=== PATIENT | female | born 1960 | race Caucasian/White ===

== ENCOUNTER 2016-10-22 16:47 | Emergency (ER) | payer BC ==
[2016-10-22] MEDS ORDERED: SODIUM CHLORIDE 0.9% 1,000 ML IV STA (17:05)
[2016-10-22] MEDS ORDERED: ONDANSETRON 4 MG/2 ML VIAL IVP STA (17:05)
[2016-10-22] MEDS ORDERED: KETOROLAC 30 MG/ML 1 ML VIAL IVP STA (17:05)
--- NOTE | 2016-10-22 17:07 | ED ---
Back Pain HPI - General Chief Complaint: Back Pain/Injury Stated Complaint: lower back and abdominal pain Time Seen by Provider: 10/22/16 16:56 Source: patient, RN notes reviewed Limitations: no limitations - History of Present Illness Initial Comments: 56-year-old female presents to emergency room chief complaint of left-sided back pain that radiates to the left lower quadrant into the groin. Patient states she's had it for the past few days. Patient states she took the urine to her doctor he got maybe a UTI and she was started on antibiotics. Patient states that she continues to have pain with some nausea. Patient states there is no vomiting. Patient states the pain is moderate. Patient states movement or touch does not seem to change the pain. Patient denies any history of having anything like this in the past. Patient states that she is not currently having any other symptoms. Patient denies any recent fever, chills, shortness of breath, chest pain, vomiting, numbness or tingling, dysuria or hematuria, constipation or diarrhea, headaches or visual changes, or any other current symptoms. - Related Data Home Medications Medication Instructions Recorded Confirmed Citalopram Hydrobromide [CeleXA] 20 mg PO DAILY 10/22/16 10/22/16 Levofloxacin [Levaquin] 500 mg PO DAILY 10/22/16 10/22/16 Phenazopyridine Hcl 97.5 mg PO TID PRN 10/22/16 10/22/16 Previous Rx's Medication Instructions Recorded Hydrocodone/Acetaminophen [Dysart 1 each PO Q6HR PRN #20 tab 10/22/16 5-325] Ketorolac [Toradol] 10 mg PO Q6HR #20 tab 10/22/16 Ondansetron Odt [Zofran ODT] 4 mg PO Q8HR PRN #20 tab 10/22/16 Tamsulosin [Flomax] 0.4 mg PO DAILY #5 cap 10/22/16 Allergies Allergy/AdvReac Type Severity Reaction Status Date / Time Sulfa (Sulfonamide Allergy Rash/Hives Verified 10/22/16 17:23 Antibiotics) Review of Systems ROS Statement: Those systems with pertinent positive or pertinent negative responses have been documented in the HPI. ROS Other: All systems not noted in ROS Statement are negative. Past Medical History Past Medical History: No Reported History History of Any Multi-Drug Resistant Organisms: None Reported Past Surgical History: Tubal Ligation Additional Past Surgical History / Comment(s): hemorroidectomy Past Psychological History: No Psychological Hx Reported Smoking Status: Former smoker Past Alcohol Use History: Occasional Past Drug Use History: None Reported General Exam - General Exam Comments Initial Comments: General: The patient is awake and alert, in no distress, and does not appear acutely ill. Eye: Pupils are equal, round and reactive to light, extra-ocular movements are intact; there is normal conjunctiva bilaterally. No signs of icterus. Ears, nose, mouth and throat: There are moist mucous membranes. Neck: The neck is supple, there is no tenderness. Cardiovascular: There is a regular rate and rhythm. No murmur, rub or gallop is appreciated. Respiratory: Lungs are clear to auscultation, respirations are non-labored, breath sounds are equal. No wheezes, stridor, rales, or rhonchi. Gastrointestinal: Soft, non-distended, non-tender abdomen without masses or organomegaly noted. There is no rebound or guarding present. No CVA tenderness. Bowel sounds are unremarkable. Back: There is no tenderness to palpation in the midline. There is no obvious deformity. No rashes noted. Musculoskeletal: Normal ROM, no tenderness, There is no pedal edema. There is no calf tenderness or swelling. Sensation intact. Pulses equal bilaterally 2+. Neurological: CN II-XII intact, There are no obvious motor or sensory deficits. Coordination appears grossly intact. Speech is normal. Skin: Skin is warm and dry and no rashes or lesions are noted. Psychiatric: Cooperative, appropriate mood & affect, normal judgment. Limitations: no limitations Course Vital Signs 10/22/16 16:52 Temperature 97.6 F Pulse Rate 67 Respiratory 16 Rate Blood Pressure 128/61 O2 Sat by Pulse 100 Oximetry Medical Decision Making - Medical Decision Making 56-year-old female presents to the emergency department with a chief complaint of abdominal pain. This time patient's lab work is reviewed in CAT scan. At this time further history was quite with the patient didn't feels if she passed something last night. This we discussed patient's symptoms are consistent with a possible ureteral calculi. Patient is currently on antibiotics or possibly. Urine and the tenderness appeared to be clean. At this time we discussed with her and he medication we will start her on Flomax and nausea meds. We did discuss follow-up with urology and she is given this information. We discussed return parameters. Patient stated that she understood all questions were answered. Patient will be discharged home. - Lab Data Result diagrams: 10/22/16 17:10 10/22/16 17:10 Lab Results 10/22/16 10/22/16 10/22/16 Range/Units 17:10 17:10 17:10 WBC 7.1 (3.8-10.6) k/uL RBC 4.62 (3.80-5.40) m/uL Hgb 13.2 (11.4-16.0) gm/dL Hct 41.5 (34.0-46.0) % MCV 89.8 (80.0-100.0) fL MCH 28.6 (25.0-35.0) pg MCHC 31.8 (31.0-37.0) g/dL RDW 11.9 (11.5-15.5) % Plt Count 225 (150-450) k/uL Neutrophils % (Manual) 56.0 % Lymphocytes % (Manual) 35.0 % Monocytes % (Manual) 7.0 % Eosinophils % (Manual) 2.0 % Neutrophils # (Manual) 4.0 (1.3-7.7) k/uL Lymphocytes # (Manual) 2.5 (1.0-4.8) k/uL Monocytes # (Manual) 0.5 (0-1.0) k/uL Eosinophils # (Manual) 0.1 (0-0.7) k/uL Nucleated RBCs 0 (0-0) /100 WBC Manual Slide Review Performed RBC Morphology Normal Sodium 142 (137-145) mmol/L Potassium 3.9 (3.5-5.1) mmol/L Chloride 105 (98-107) mmol/L Carbon Dioxide 26 (22-30) mmol/L Anion Gap 11 mmol/L BUN 13 (7-17) mg/dL Creatinine 1.04 (0.52-1.04) mg/dL Est GFR (MDRD) Af Amer >60 (>60 ml/min/1.73 sqM) Est GFR (MDRD) Non-Af 55 (>60 ml/min/1.73 sqM) Glucose 110 H (74-99) mg/dL Calcium 9.1 (8.4-10.2) mg/dL Total Bilirubin 0.6 (0.2-1.3) mg/dL AST 28 (14-36) U/L ALT 36 (9-52) U/L Alkaline Phosphatase 84 (38-126) U/L Total Protein 7.3 (6.3-8.2) g/dL Albumin 4.4 (3.5-5.0) g/dL Amylase 38 (30-110) U/L Lipase 28 (23-300) U/L Urine Color Yellow Urine Appearance Clear (Clear) Urine pH 6.5 (5.0-8.0) Ur Specific [place] 1.001 (1.001-1.035) Urine Protein Negative (Negative) Urine Glucose (UA) Negative (Negative) Urine Ketones Negative (Negative) Urine Blood Negative (Negative) Urine Nitrate Negative (Negative) Urine Bilirubin Negative (Negative) Urine Urobilinogen <2.0 (<2.0) mg/dL Ur Leukocyte Esterase Negative (Negative) - Radiology Data Radiology results: report reviewed, image reviewed Disposition Clinical Impression: Left flank pain Disposition: HOME SELF-CARE Condition: Stable Instructions: Flank Pain (ED) Additional Instructions: Please use medication as discussed. Please follow up with family doctor if symptoms have not improved over the next two days. Please return to the emergency room if your symptoms increase or worsen or for any other concerns. Prescriptions: Hydrocodone/Acetaminophen [Dysart 5-325] 1 each PO Q6HR PRN #20 tab PRN Reason: Pain Ketorolac [Toradol] 10 mg PO Q6HR #20 tab Ondansetron Odt [Zofran ODT] 4 mg PO Q8HR PRN #20 tab PRN Reason: Nausea Tamsulosin [Flomax] 0.4 mg PO DAILY #5 cap Referrals: Rodger Griffiths DO [Primary Care Provider] - 1-2 days Gurinder Sethi MD [STAFF PHYSICIAN] - 1-2 days Time of Disposition: 18:09
[2016-10-22 17:26] LABS: Appearance,Urine Clear (Clear); Aty Lym Flag Marked; Bilirubin,Urine Negative (Negative); CH 30.3; CHCM 33.8; Glucose,Urine (UA) Negative (Negative); HCT 41.5 % (34.0-46.0); HDW 2.52; HGB 13.2 gm/dL (11.4-16.0); Ketones,Urine Negative (Negative); Leukocyte Esterase,Urine Negative (Negative); MCH 28.6 pg (25.0-35.0); MCHC 31.8 g/dL (31.0-37.0); MCV 89.8 fL (80.0-100.0); MPO Flag Slight; Mean Platelet Volume 7.2; Nitrite,Urine Negative (Negative); PH, Urine 6.5 (5.0-8.0); Protein,Urine Negative (Negative); RBC 4.62 m/uL (3.80-5.40); RDW 11.9 % (11.5-15.5); Specific Gravity,Urine 1.001 (1.001-1.035); UA Billing (MACRO vs. MICRO) CHEM; Urobilinogen,Urine <2.0 mg/dL (<2.0); WBC 7.1 k/uL (3.8-10.6); WBC (Perox) 7.45
[2016-10-22 17:34] LABS: ALT 36 U/L (9-52); AST 28 U/L (14-36); Alkaline Phosphatase 84 U/L (38-126); Amylase 38 U/L (30-110); Anion Gap 11 mmol/L; Blood Urea Nitrogen 13 mg/dL (7-17); Calcium 9.1 mg/dL (8.4-10.2); Carbon Dioxide 26 mmol/L (22-30); Chloride 105 mmol/L (98-107); Glucose 110 mg/dL (74-99); Non-African American GFR(MDRD) 55 (>60 ml/min/1.73 sqM); Potassium 3.9 mmol/L (3.5-5.1); Sodium 142 mmol/L (137-145); Total Bilirubin 0.6 mg/dL (0.2-1.3); Total Protein 7.3 g/dL (6.3-8.2)
--- NOTE | 2016-10-22 17:50 | CT ---
EXAMINATION TYPE: CT abdomen pelvis wo con DATE OF EXAM: 10/22/2016 5:37 PM COMPARISON: 04/08/2010 HISTORY: PT states of lower abdominal pain that radiates into back. CT DLP: 365.8 mGycm Automated exposure control for dose reduction was used. TECHNIQUE: Helical acquisition of images was performed from the lung bases through the pelvis. FINDINGS: Lung bases are clear. There is no pleural effusion. Heart size is normal. Liver spleen pancreas gallbladder appear normal. Bile ducts are not dilated. There is no adrenal mass . Kidneys have normal size and contour. There is no hydronephrosis. Ureters are not dilated. There is no retroperitoneal adenopathy. Appendix appears normal. I see no intestinal wall thickening. There a re no dilated loops. Bladder distends smoothly. There is no sign of a pelvic mass. The bony structure s are intact. Uterus is retroverted. There is no evidence of a bony destructive process. IMPRESSION: NEGATIVE CT SCAN OF THE ABDOMEN AND PELVIS. NO ADVERSE CHANGE COMPARED TO OLD EXAM.
[2016-10-22 17:57] LABS: Add Differential Manual Differential
[2016-10-22 17:59] LABS: Manual Review Performed; Nucleated Red Blood Cells 0 /100 WBC (0-0); RBC Morphology Normal; Total Cells Counted 100
[2016-10-22 18:13] VITALS: BP 111/59
[2016-10-22 18:44] VITALS: PULSE 66; RESP 16; TEMP 98
== END 2016-10-22 18:40 | disposition home or self-care (01) ==
LOC: EC 16:47
DX: R10.9 Unspecified abdominal pain (principal); Z79.899 Other long term (current) drug therapy; Z88.2 Allergy status to sulfonamides; Z87.891 Personal history of nicotine dependence
CPT/HCPCS: 36415; 80053; 82150; 83690; 85025; 81003; 87086; 74176; 99284; 96374; 96375; 96361; J1885

== ENCOUNTER → 2017-02-20 | Outpatient (CLI) | payer BC ==
[2017-02-20 13:11] LABS: Aty Lym Flag Marked; CH 30.1; CHCM 32.7; HCT 39.8 % (34.0-46.0); HDW 2.32; MCH 30.1 pg (25.0-35.0); MCHC 32.6 g/dL (31.0-37.0); MCV 92.4 fL (80.0-100.0); MPO Flag Slight; WBC (Perox) 6.22
[2017-02-20 13:30] LABS: Add Differential Manual Differential
[2017-02-20 13:34] LABS: Anion Gap 8 mmol/L; Blood Urea Nitrogen 15 mg/dL (7-17); Calcium 9.4 mg/dL (8.4-10.2); Carbon Dioxide 28 mmol/L (22-30); Chloride 103 mmol/L (98-107); Glucose 153 mg/dL (74-99); Manual Review Performed; Non-African American GFR(MDRD) >60 (>60 ml/min/1.73 sqM); Nucleated Red Blood Cells 0 /100 WBC (0-0); Potassium 4.3 mmol/L (3.5-5.1); RBC Morphology Normal; Sodium 139 mmol/L (137-145); Total Cells Counted 100
== END | disposition home or self-care (01) ==
LOC: LABPAT 12:27
PROVIDERS: ATTEND Podiatrist Foot & Ankle Surgery
DX: Z01.812 Encounter for preprocedural laboratory examination (principal)
CPT/HCPCS: 80048; 85025

== ENCOUNTER → 2019-01-09 | Outpatient (CLI) | payer BC ==
--- NOTE | 2019-01-09 08:38 | US ---
EXAMINATION TYPE: US thyroid st tissue head/neck DATE OF EXAM: 01/09/2019 COMPARISON: NONE CLINICAL HISTORY: E04.9 THYROID GOITER. GLAND SIZE: Right Lobe: cm Overall Parenchyma: Left Lobe: cm Overall Parenchyma: Isthmus Thickness: cm NODULES RIGHT: # of nodules measured on right: 1. X x cm nodule at the pole with margins; . This nodule is and shows . Prior size: x x cm 2. X x cm nodule at the pole with margins; . This nodule is and shows . Prior size: x x cm 3. X x cm nodule at the pole with margins; . This nodule is and shows . Prior size: x x cm 4. X x cm nodule at the pole with margins; . This nodule is and shows . Prior size: x x cm LEFT: # of nodules measured on left: 1. X x cm nodule at the pole with margins; . This nodule is and shows . Prior size: x x cm 2. X x cm nodule at the pole with margins; . This nodule is and shows . Prior size: x x cm 3. X x cm nodule at the pole with margins; . This nodule is and shows . Prior size: x x cm 4. X x cm nodule at the pole with margins; . This nodule is and shows . Prior size: x x cm ISTHMUS: # of nodules measured in the isthmus: 1. X x cm nodule at the pole with margins; . This nodule is and shows . Prior size: x x cm Bilateral neck scanned, no evidence of lymphadenopathy. IMPRESSION: EXAMINATION TYPE: US thyroid st tissue head/neck DATE OF EXAM: 01/09/2019 COMPARISON: NONE CLINICAL HISTORY: E04.9 THYROID GOITER. MEASUREMENTS: GLAND SIZE: Right Lobe: 3.7 x 1.3 x 1.2 Left Lobe: 3.2 x 0.8 x 0.6 Isthmus Thickness: 0.2 NODULES RIGHT: # of nodules measured on right: 0 LEFT: # of nodules measured on left: 0 ISTHMUS: # of nodules measured within isthmus: 0 Bilateral neck scanned, no evidence of lymphadenopathy. IMPRESSION: Homogeneous nonenlarged thyroid gland with no discrete nodule.
--- NOTE | 2019-01-09 11:01 | XR ---
EXAMINATION TYPE: XR chest 2V DATE OF EXAM: 01/09/2019 COMPARISON: Prior chest x-ray 06/30/2016 HISTORY: Atypical chest pain, thyroid goiter TECHNIQUE: Frontal and lateral views of the chest are obtained. FINDINGS: There is no focal air space opacity, pleural effusion, or pneumothorax seen. The cardiac silhouette size is within normal limits. The osseous structures are intact. IMPRESSION: No acute cardiopulmonary process.
--- NOTE | 2019-01-09 11:14 | ECHOF ---
Referral Reason:R07.89 Atypical Chest Pain MEASUREMENTS -------- HEIGHT: 162.6 cm WEIGHT: 82.6 kg BP: 125/75 RVIDd: 2.7 cm (< 3.3) IVSd: 1.0 cm (0.6 - 1.1) LVIDd: 3.6 cm (3.9 - 5.3) LVPWd: 0.9 cm (0.6 - 1.1) IVSs: 1.3 cm LVIDs: 3.2 cm LVPWs: 1.3 cm LA Diam: 2.6 cm (2.7 - 3.8) LAESV Index (A-L): 20.53 ml/m Ao Diam: 2.4 cm (2.0 - 3.7) AV Cusp: 1.8 cm (1.5 - 2.6) EPSS: 0.3 cm MV E Tyler: 0.92 m/s MV DecT: 258 ms MV A Tyler: 0.65 m/s MV E/A Ratio: 1.40 RAP: 5.00 mmHg RVSP: 29.76 mmHg MV EF SLOPE: 133.71 mm/s (70 - 150) MV EXCURSION: 1.65 cm (> 18.000) FINDINGS -------- Sinus rhythm. This was a technically good study. The left ventricular size is normal. Left ventricular wall thickness is normal. Overall left vent ricular systolic function is normal with, an EF between 60 - 65 %. The right ventricle is normal in size. Normal LA size by volume 22+/-6 ml/m2. The right atrium is normal in size. Aortic valve is trileaflet and is mildly thickened. The mitral valve leaflets are mildly thickened. Mild mitral regurgitation is present. Mild tricuspid regurgitation present. Right ventricular systolic pressure is normal at < 35 mmHg. Trace/mild (physiologic) pulmonic regurgitation. The aortic root size is normal. Normal inferior vena cava with normal inspiratory collapse consistent with estimated right atrial pre ssure of 5 mmHg. There is no pericardial effusion. CONCLUSIONS -------- 1. Sinus rhythm. 2. This was a technically good study. 3. The left ventricular size is normal. 4. Left ventricular wall thickness is normal. 5. Overall left ventricular systolic function is normal with, an EF between 60 - 65 %. 6. The right ventricle is normal in size. 7. Normal LA size by volume 22+/-6 ml/m2. 8. The right atrium is normal in size. 9. Aortic valve is trileaflet and is mildly thickened. 10. The mitral valve leaflets are mildly thickened. 11. Mild mitral regurgitation is present. 12. Mild tricuspid regurgitation present. 13. Right ventricular systolic pressure is normal at < 35 mmHg. 14. Trace/mild (physiologic) pulmonic regurgitation. 15. The aortic root size is normal. 16. Normal inferior vena cava with normal inspiratory collapse consistent with estimated right atrial pressure of 5 mmHg. 17. There is no pericardial effusion. SHANK ARCHER: JOSHUA Ron
--- NOTE | 2019-01-09 13:02 | EST ---
EXERCISE STRESS AGE: 58 SEX: F HT: 64" WT: 182 PROTOCOL: Stress Test STAGE: 3 DURATION OF EXERCISE: 9:00 HEART RATE REST: 60 BLOOD PRESSURE REST: 125/75 MAXIMUM HEART RATE ACHIEVED: 145 MAXIMUM BLOOD PRESSURE: 171/55 85% MPHR: 137 100% MPHR: 161 METS: 10.5 INDICATIONS: Chest pain. CLINICAL INFORMATION: Baseline EKG revealed normal sinus rhythm without significant ST-T changes. Patient walked on standard Sunny protocol for 9 minutes achieved a maximum heart rate of 145 beats per minute which is more than 85% of predicted maximal. She developed fatigue and shortness of breath but did not have any angina or arrhythmia. The EKG did not reveal any ST-segment changes to indicate ischemia. By EKG this is a negative stress test with fair exercise capacity. MMODL / IJN: [id number] /
== END | disposition home or self-care (01) ==
LOC: RADUSMAIN 07:44
PROVIDERS: ATTEND Family Medicine
DX: R07.89 Other chest pain (principal); E04.9 Nontoxic goiter, unspecified; R06.02 Shortness of breath; R53.83 Other fatigue; Z88.2 Allergy status to sulfonamides
CPT/HCPCS: 71046; 76536; 93017; 93306

== ENCOUNTER 2019-01-16 09:39 | Day surgery (SDC) | payer BC ==
[2019-01-14 14:28] VITALS: BMI 31.6
[~2019-01-16 09:39] MED LIST: LACTATED RINGERS 1,000 ML IV SCH
[2019-01-16 10:04] VITALS: TEMP 97.8
[2019-01-16] MEDS ORDERED: LIDOCAINE 1% 20 ML VIAL (10MG/ML) FOR IV START INTRADERMA ONE (10:13)
[2019-01-16] MEDS ORDERED: PROPOFOL 10 MG/ML 20 ML VIAL IV ONE (11:03)
[2019-01-16] MEDS ORDERED: LIDOCAINE 1% INJ 10MG/ML (20 ML MDV) ONE (11:03)
--- NOTE | 2019-01-16 11:26 | P.PCN ---
Date of Procedure: 01/16/19 Procedure(s) Performed: Brief history: Patient is a pleasant 58-year-old white female, scheduled for an elective upper endoscopy as well as colonoscopy as a part of evaluation of GERD intermittent dysphagia to solids and screening for colorectal neoplasia Procedure performed: Esophagogastroduodenoscopy with biopsy Colonoscopy Preoperative diagnosis: GERD/intermittent dysphagia to solids Screening for colon cancer Anesthesia: MAC Procedure: After informed consent was obtained from the patient was brought into the endoscopy unit and IV sedation was administered by anesthesia under continuous monitoring. Initially upper endoscopy was done. The Olympus GF 160 video endoscope was inserted inserted into the mouth and esophagus intubated without any difficulty and was gradually advanced into the stomach and duodenum and carefully examined. The bulb and second part of the duodenum appeared normal. The scope was then withdrawn into the stomach adequately insufflated with air and upon careful examination the antrum scattered erosions and biopsies were done from this area. The body, cardia and fundus appeared normal. The scope was then withdrawn into the esophagus. The GE junction was located at 40 cm to the incisors. It appeared regular with no erythema erosions or ulcerations. Re st of the esophagus appeared normal. Biopsies were done from the distal esophagus to rule out eosinophilic esophagitis. Patient tolerated the procedure well. At this time the patient continued to remain sedation. Initial digital rectal examination was normal. Olympus CF 160 video colonoscope was then inserted into the rectum and gradually advanced to the cecum without any difficulty. Careful examination was performed as the scope was gradually being withdrawn. The prep was excellent. The cecum, ascending colon, transverse colon, descending colon, sigmoid colon and rectum appeared normal. Retroflexion was performed in the rectum and no lesions were noted. Patient tolerated the procedure well. Impression: 1. Upper endoscopy revealed mild antral gastritis but no evidence of esopha gitis or esophageal stricture 2. Colonoscopy was within normal limits with no evidence of colitis or colorectal neoplasia. Recommendations: Findings of this examination were discussed with the patient as well as a family. She was advised to follow with the biopsy results. She can have a repeat screening colonoscopy in 10 years.
[2019-01-16 11:49] VITALS: BP 133/79; PULSE 79; RESP 17
== END 2019-01-16 11:58 | disposition home or self-care (01) ==
LOC: ORWHC2ENDO 09:39
PROVIDERS: ATTEND Internal Medicine Gastroenterology
DX: Z12.11 Encounter for screening for malignant neoplasm of colon (principal); K21.0 Gastro-esophageal reflux disease with esophagitis; F32.9 Major depressive disorder, single episode, unspecified; Z79.899 Other long term (current) drug therapy; Z88.2 Allergy status to sulfonamides
CPT/HCPCS: 88305; 43239; J2001; J2704; G0121

== ENCOUNTER → 2020-07-16 | Outpatient (CLI) | payer BC ==
--- NOTE | 2020-07-16 15:01 | CT ---
EXAMINATION TYPE: CT urogram wo/w con DATE OF EXAM: 07/16/2020 COMPARISON: 10/22/2016 HISTORY: 60-year-old female R10.32, left lower quadrant pain, R31.1, Hematuria TECHNIQUE: Contiguous axial scanning of the abdomen and pelvis performed without and with IV Contrast , patient injected with 100 mL of Isovue 300. Delayed images through the kidneys and bladder were obt ained. Coronal/sagittal reconstructions performed. 3-D reconstructions generated a dedicated workstat ion per CT urogram protocol. CT DLP: 961.5 mGycm Automated exposure control for dose reduction was used. FINDINGS: Heart normal size without pericardial effusion. Lung bases clear without pleural effusion. No focal liver lesion or biliary ductal dilatation. Portal venous system is patent. Gallbladder, adrenal glands, spleen, and pancreas appear within normal limits. No nephrolithiasis. Bilateral extrarenal pelves. No suspicious renal mass. No abnormal filling defect within the renal collecting systems or right ureter. The distal third left ureter is not seen opacified and is not adequately assessed. Remainder of the left ureter shows no d iscrete abnormality. No dilated small bowel, free fluid, or free air. No mesenteric or retroperitoneal lymphadenopathy. Some liquid stool within the cecum. Mild to moderate stool throughout the colon. No pericolonic infla mmatory change. Bladder is urine and contrast distended on the last postcontrast phase. No suspicious filling defect is identified within the bladder lumen. A subtle 2.5 cm peripherally enhancing round structure within the left uterine fundus could represent a fibroid but should be further evaluated with pelvic ultrasound. Both ovaries are visualized. No ab normal fluid collection in the pelvis or pelvic lymphadenopathy. Bones: Mild degenerative change of the hips. No osseous destructive process. IMPRESSION: 1. NO NEPHROLITHIASIS OR HYDRONEPHROSIS. NO SUSPICIOUS RENAL LESION OR SUSPICIOUS FILLING DEFECT WITH IN THE RENAL COLLECTING SYSTEMS. 2. THE RIGHT URETER IS CLEAR. THE DISTAL THIRD SEGMENT OF THE LEFT URETER IS INADEQUATELY OPACIFIED A ND SUBOPTIMALLY ASSESSED. 3. A SUBTLE 2.5 CM PERIPHERALLY ENHANCING ROUND STRUCTURE WITHIN THE LEFT UTERINE FUNDUS. A UTERINE F IBROID IS SUSPECTED BUT SHOULD BE CONFIRMED WITH PELVIC ULTRASOUND.
== END ==
LOC: RADCTMAIN 11:49
PROVIDERS: ATTEND Urology
DX: R93.41 Abnormal radiologic findings on diagnostic imaging of renal pelvis, ureter, or bladder (principal); R10.32 Left lower quadrant pain; R31.1 Benign essential microscopic hematuria; Z88.2 Allergy status to sulfonamides
CPT/HCPCS: 74178; 74400; Q9967

== ENCOUNTER → 2021-09-03 | Outpatient (CLI) | payer BC ==
--- NOTE | 2021-09-07 09:10 | MM ---
Reason for exam: screening (asymptomatic). Last mammogram was performed 3 years and 8 months ago. History: Patient is postmenopausal. Physical Findings: A clinical breast exam by your physician is recommended on an annual basis and results should be correlated with mammographic findings. MG Screening Mammo w CAD Bilateral CC and MLO view(s) were taken. Prior study comparison: January 04, 2018, bilateral MG screening mammo w CAD. September 13, 2016, bilateral MG screening mammo w CAD. There are scattered fibroglandular densities. No significant changes when compared with prior studies. ASSESSMENT: Negative, BI-RAD 1 RECOMMENDATION: Routine screening mammogram of both breasts in 1 year.
== END | disposition home or self-care (01) ==
LOC: RADMAMWWP 14:54
PROVIDERS: ATTEND Family Medicine
DX: Z12.31 Encounter for screening mammogram for malignant neoplasm of breast (principal)
CPT/HCPCS: 77067

== ENCOUNTER → 2021-10-26 | Outpatient (CLI) | payer BC ==
--- NOTE | 2021-10-26 15:50 | BD ---
EXAMINATION TYPE: Axial Bone Density DATE OF EXAM: 10/26/2021 COMPARISON: 2014 CLINICAL HISTORY: menopausal, N 95.1 Height: 5'3 Weight: 167 FRAX RISK QUESTIONS: Secondary Osteoporosis: RISK FACTORS HISTORY OF: Diet low in dairy products/other sources of calcium: y Postmenopausal woman: y MEDICATIONS: Additional Medications: depression, Additional History: EXAM MEASUREMENTS: Bone mineral densitometry was performed using the [employer] System. Bone mineral density as measured about the Lumbar spine is: ----- L1-L4(G/cm2): 1.228 T Score Values are as follows: ----- L2: -0.9 ----- L3: 1.0 ----- L4: 1.8 ----- L1-L4:0.4 Bone mineral density has: Decreased -5.3% since study of: 07/13/2015 Bone mineral density about the R hip (g/cm2): 0.972 Bone mineral density about the L hip (g/cm2): 0.931 T Score values are as follows: -----R Neck: -0.5 -----L Neck: -0.8 -----R Total: -0.4 -----L Total: -0.2 Bone mineral density has: Decreased -3.4% since study of: 07/13/2015 IMPRESSION: Normal (Values between +1 and -1 indicate normal bone mass). Consider repeating this study in 5 year s or sooner if there is some new clinical indication. NOTE: T-SCORE=SD OF THE YOUNG ADULT MEAN.
== END | disposition home or self-care (01) ==
LOC: RADBDWWP 14:45
PROVIDERS: ATTEND Obstetrics & Gynecology
DX: N95.1 Menopausal and female climacteric states (principal)
CPT/HCPCS: 77080

== ENCOUNTER → 2022-09-15 | Outpatient (CLI) | payer BC ==
--- NOTE | 2022-09-16 07:48 | MM ---
Reason for Exam: Screening (asymptomatic). Last screening mammogram was performed 12 month(s) ago. Patient History: Menarche at age 10. First Full-Term at age 18. Postmenopausal. Patient used Hormonal Contraceptives for 2 years. Risk Values: Jessica 5 year model risk: 1.2%. NCI Lifetime model risk: 5.3%. Prior Study Comparison: 09/13/2016 Bilateral Screening Mammogram, [facility]. 01/04/2018 Bilateral Screening Mammogram, [facility]. 09/03/2021 Bilateral Screening Mammogram, [facility]. Tissue Density: There are scattered fibroglandular densities. Findings: Analyzed By CAD. There is no suspicious group of microcalcifications or new suspicious mass in either breast. No significant change from prior exams. Overall Assessment: Negative, BI-RAD 1 Management: Screening Mammogram of both breasts in 1 year. A clinical breast exam by your physician is recommended on an annual basis and results should be correlated with mammographic findings. Electronically signed and approved by: Dg Boswell D.O.
== END | disposition home or self-care (01) ==
LOC: RADMAMWWP 13:59
PROVIDERS: ATTEND Family Medicine
DX: Z12.31 Encounter for screening mammogram for malignant neoplasm of breast (principal); Z78.0 Asymptomatic menopausal state
CPT/HCPCS: 77067

== ENCOUNTER → 2023-10-18 | Outpatient (CLI) | payer BC ==
--- NOTE | 2023-10-19 20:59 | MM ---
Reason for Exam: Screening (asymptomatic). Last mammogram was performed 1 year(s) and 1 month(s) ago. Patient History: Menarche at age 10. First Full-Term at age 18. Postmenopausal. Patient used Hormonal Contraceptives for 2 years. Risk Values: Jessica 5 year model risk: 1.3%. NCI Lifetime model risk: 5.2%. Prior Study Comparison: 01/04/2018 Bilateral Screening Mammogram, [facility]. 09/03/2021 Bilateral Screening Mammogram, [facility]. 09/15/2022 Bilateral MG screening mammo w CAD, [facility]. Tissue Density: There are scattered fibroglandular densities. Findings: Analyzed By CAD. Unchanged focal asymmetry left upper outer quadrant. There is no suspicious group of microcalcifications or new suspicious mass in either breast. Overall Assessment: Benign, BI-RAD 2 Management: Screening Mammogram of both breasts in 1 year. . Patient should continue monthly self-breast exams. A clinical breast exam by your physician is recommended on an annual basis. This exam should not preclude additional follow-up of suspicious palpable abnormalities. Note on Jessica scores and lifetime risk: 1. A Jessica score greater than 3% is considered moderate risk. If this is the case, consider specialist referral to assess eligibility for a risk reducing agent. 2. If overall lifetime risk for the development of breast cancer is 20% or higher, the patient may qualify for future screening with alternating mammogram and breast MRI. Electronically signed and approved by: Kenia Bennett M.D. Radiologist
== END | disposition home or self-care (01) ==
LOC: RADMAMWWP 11:04
PROVIDERS: ATTEND Family Medicine
DX: Z12.31 Encounter for screening mammogram for malignant neoplasm of breast (principal); Z78.0 Asymptomatic menopausal state
CPT/HCPCS: 77067